=== PATIENT | female | born 1980 | race Caucasian/White ===

== ENCOUNTER 2016-12-04 21:04 | Emergency (ER) | payer BC ==
[2016-12-04] MEDS ORDERED: SODIUM CHLORIDE 0.9% 1,000 ML IV STA (21:18)
[2016-12-04] MEDS ORDERED: DICYCLOMINE 10 MG/ML 2 ML AMP IM STA (21:18)
[2016-12-04] MEDS ORDERED: HYDROmorphone 1 MG/ML 1 ML SYRINGE IVP STA (21:18)
[2016-12-04] MEDS ORDERED: ONDANSETRON 4 MG/2 ML VIAL IVP STA (21:18)
[2016-12-04] MEDS ORDERED: RX INFO: IV CONTRAST WAS GIVEN 1 EACH MISC MISCELLANE PRN (21:19)
[2016-12-04] MEDS ORDERED: IBUPROFEN IV 800 MG in SODIUM CHLORIDE 0.9% 250 ML IV ONE (21:25)
--- NOTE | 2016-12-04 21:25 | ED ---
Abdominal Pain HPI - General Chief Complaint: Abdominal Pain Stated Complaint: Vomiting Time Seen by Provider: 12/04/16 21:14 Source: patient, RN notes reviewed Mode of arrival: ambulatory Limitations: no limitations - History of Present Illness Initial Comments: 36-year-old female presents emergency Department chief complaint of abdominal pain nausea vomiting and diarrhea. Patient started having the symptoms yesterday. They've been progressively getting worse. Family has had symptoms like symptoms with their 2 children. Patient just seemed to be getting worse and worse she states her whole abdomen as cramping and she said the diarrhea and throwing up and she just was not any better home so they thought that she should be seen. Patient has had no other symptoms with this. There has been low-grade fevers.Patient denies any recent fever, chills, shortness of breath, chest pain, back pain, numbness or tingling, dysuria or hematuria, constipation , headaches or visual changes, or any other current symptoms. - Related Data Home Medications Medication Instructions Recorded Confirmed Multivitamins, Thera [Multivitamin 1 tab PO DAILY 12/04/16 12/04/16 (formulary)] Previous Rx's Medication Instructions Recorded Dicyclomine [Bentyl] 10 mg PO TID #20 capsule 12/04/16 Ondansetron Odt [Zofran ODT] 4 mg PO Q8HR PRN #20 tab 12/04/16 Allergies Allergy/AdvReac Type Severity Reaction Status Date / Time cephalexin [From Keflex] Allergy Rash/Hives Verified 12/04/16 21:23 norma Allergy Rash/Hives Verified 12/04/16 21:23 Review of Systems ROS Statement: Those systems with pertinent positive or pertinent negative responses have been documented in the HPI. ROS Other: All systems not noted in ROS Statement are negative. Past Medical History Past Medical History: No Reported History History of Any Multi-Drug Resistant Organisms: None Reported Past Surgical History: Cholecystectomy Additional Past Surgical History / Comment(s): i&d of abd abscess Past Psychological History: No Psychological Hx Reported Smoking Status: Never smoker Past Alcohol Use History: Occasional Past Drug Use History: None Reported General Exam - General Exam Comments Initial Comments: General: The patient is awake and alert, in no distress, and does not appear acutely ill. Eye: Pupils are equal, round and reactive to light, extra-ocular movements are intact; there is normal conjunctiva bilaterally. No signs of icterus. Ears, nose, mouth and throat: There are moist mucous membranes and no oral lesions. Neck: The neck is supple, there is no tenderness. Cardiovascular: There is a regular rate and rhythm. No murmur, rub or gallop is appreciated. Respiratory: Lungs are clear to auscultation, respirations are non-labored, breath sounds are equal. No wheezes, stridor, rales, or rhonchi. Gastrointestinal: Soft, non-distended, she is mildly tender abdomen without masses or organomegaly noted. There is no rebound or guarding present. No CVA tenderness. Bowel sounds are unremarkable. Back: There is no tenderness to palpation in the midline. There is no obvious deformity. No rashes noted. Musculoskeletal: Normal ROM, no tenderness, There is no pedal edema. There is no calf tenderness or swelling. Sensation intact. Pulses equal bilaterally 2+. Neurological: CN II-XII intact, There are no obvious motor or sensory deficits. Coordination appears grossly intact. Speech is normal. Skin: Skin is warm and dry and no rashes or lesions are noted. Psychiatric: Cooperative, appropriate mood & affect, normal judgment. Limitations: no limitations Course Vital Signs 12/04/16 21:10 Temperature 99.2 F Pulse Rate 122 H Respiratory 20 Rate Blood Pressure 110/76 O2 Sat by Pulse 99 Oximetry Medical Decision Making - Medical Decision Making 36 yo female presents emergency room chief complaint of abdominal pain nausea vomiting and diarrhea. This time CT and lab work is reviewed. At this time the patient appears to have most likely gastroenteritis. We did discuss however there could be other etiologies for the pain when to return and follow- up. We did discuss all the patient's questions. He stated he understood she states that she is feeling much better. This time patient will be discharged home. - Lab Data Result diagrams: 12/04/16 22:10 12/04/16 22:10 Lab Results 12/04/16 12/04/16 12/04/16 Range/Units 22:10 22:10 22:10 WBC 9.0 (3.8-10.6) k/uL RBC 5.20 (3.80-5.40) m/uL Hgb 16.4 H (11.4-16.0) gm/dL Hct 49.2 H (34.0-46.0) % MCV 94.6 (80.0-100.0) fL MCH 31.5 (25.0-35.0) pg MCHC 33.3 (31.0-37.0) g/dL RDW 13.4 (11.5-15.5) % Plt Count 238 (150-450) k/uL Neutrophils % 84 % Lymphocytes % 9 % Monocytes % 4 % Eosinophils % 1 % Basophils % 0 % Neutrophils # 7.5 (1.3-7.7) k/uL Lymphocytes # 0.8 L (1.0-4.8) k/uL Monocytes # 0.4 (0-1.0) k/uL Eosinophils # 0.1 (0-0.7) k/uL Basophils # 0.0 (0-0.2) k/uL Sodium 140 (137-145) mmol/L Potassium 4.2 (3.5-5.1) mmol/L Chloride 106 (98-107) mmol/L Carbon Dioxide 20 L (22-30) mmol/L Anion Gap 14 mmol/L BUN 16 (7-17) mg/dL Creatinine 0.90 (0.52-1.04) mg/dL Est GFR (MDRD) Af Amer >60 (>60 ml/min/1.73 sqM) Est GFR (MDRD) Non-Af >60 (>60 ml/min/1.73 sqM) Glucose 101 H (74-99) mg/dL Plasma Lactic Acid [place] 1.4 (0.7-2.0) mmol/L Calcium 9.4 (8.4-10.2) mg/dL Phosphorus 2.8 (2.5-4.5) mg/dL Magnesium 1.8 (1.6-2.3) mg/dL Total Bilirubin 1.4 H (0.2-1.3) mg/dL AST 38 H (14-36) U/L ALT 55 H (9-52) U/L Alkaline Phosphatase 72 (38-126) U/L Total Protein 7.9 (6.3-8.2) g/dL Albumin 4.7 (3.5-5.0) g/dL Amylase 66 (30-110) U/L Lipase 112 (23-300) U/L Urine Color Urine Appearance (Clear) Urine pH (5.0-8.0) Ur Specific [place] (1.001-1.035) Urine Protein (Negative) Urine Glucose (UA) (Negative) Urine Ketones (Negative) Urine Blood (Negative) Urine Nitrite (Negative) Urine Bilirubin (Negative) Urine Urobilinogen (<2.0) mg/dL Ur Leukocyte Esterase (Negative) Urine RBC (0-5) /hpf Urine WBC (0-5) /hpf Ur Squamous Epith Cells (0-4) /hpf Amorphous Sediment (None) /hpf Urine Bacteria (None) /hpf Urine Mucus (None) /hpf 12/04/16 Range/Units 22:10 WBC (3.8-10.6) k/uL RBC (3.80-5.40) m/uL Hgb (11.4-16.0) gm/dL Hct (34.0-46.0) % MCV (80.0-100.0) fL MCH (25.0-35.0) pg MCHC (31.0-37.0) g/dL RDW (11.5-15.5) % Plt Count (150-450) k/uL Neutrophils % % Lymphocytes % % Monocytes % % Eosinophils % % Basophils % % Neutrophils # (1.3-7.7) k/uL Lymphocytes # (1.0-4.8) k/uL Monocytes # (0-1.0) k/uL Eosinophils # (0-0.7) k/uL Basophils # (0-0.2) k/uL Sodium (137-145) mmol/L Potassium (3.5-5.1) mmol/L Chloride (98-107) mmol/L Carbon Dioxide (22-30) mmol/L Anion Gap mmol/L BUN (7-17) mg/dL Creatinine (0.52-1.04) mg/dL Est GFR (MDRD) Af Amer (>60 ml/min/1.73 sqM) Est GFR (MDRD) Non-Af (>60 ml/min/1.73 sqM) Glucose (74-99) mg/dL Plasma Lactic Acid [place] (0.7-2.0) mmol/L Calcium (8.4-10.2) mg/dL Phosphorus (2.5-4.5) mg/dL Magnesium (1.6-2.3) mg/dL Total Bilirubin (0.2-1.3) mg/dL AST (14-36) U/L ALT (9-52) U/L Alkaline Phosphatase (38-126) U/L Total Protein (6.3-8.2) g/dL Albumin (3.5-5.0) g/dL Amylase (30-110) U/L Lipase (23-300) U/L Urine Color Yellow Urine Appearance Cloudy H (Clear) Urine pH 5.5 (5.0-8.0) Ur Specific [place] 1.026 (1.001-1.035) Urine Protein 1+ H (Negative) Urine Glucose (UA) Negative (Negative) Urine Ketones Trace H (Negative) Urine Blood Trace H (Negative) Urine Nitrite Negative (Negative) Urine Bilirubin Negative (Negative) Urine Urobilinogen <2.0 (<2.0) mg/dL Ur Leukocyte Esterase Negative (Negative) Urine RBC 15 H (0-5) /hpf Urine WBC 4 (0-5) /hpf Ur Squamous Epith Cells 3 (0-4) /hpf Amorphous Sediment Rare H (None) /hpf Urine Bacteria Rare H (None) /hpf Urine Mucus Many H (None) /hpf Disposition Clinical Impression: Nausea & vomiting, Diarrhea, Elevated liver enzymes Disposition: HOME SELF-CARE Condition: Stable Instructions: Gastroenteritis (ED) Additional Instructions: Please use medication as discussed. Please follow up with family doctor if symptoms have not improved over the next two days. Please return to the emergency room if your symptoms increase or worsen or for any other concerns. Prescriptions: Dicyclomine [Bentyl] 10 mg PO TID #20 capsule Ondansetron Odt [Zofran ODT] 4 mg PO Q8HR PRN #20 tab PRN Reason: Nausea Referrals: Raúl Otoole MD [Primary Care Provider] - 1-2 days Time of Disposition: 23:53
[2016-12-04 22:36] LABS: Basophils % (A) 0 %; CH 31.7; CHCM 33.6; Eosinophils # (A) 0.1 k/uL (0-0.7); Eosinophils % (A) 1 %; HCT 49.2 % (34.0-46.0); HDW 2.42; HGB 16.4 gm/dL (11.4-16.0); Luc # (Auto) 0.09; Luc % (Auto) 1; Lymphocytes # (A) 0.8 k/uL (1.0-4.8); Lymphocytes % (A) 9 %; MCH 31.5 pg (25.0-35.0); MCHC 33.3 g/dL (31.0-37.0); MCV 94.6 fL (80.0-100.0); Mean Platelet Volume 8.2; Monocytes # (A) 0.4 k/uL (0-1.0); Monocytes % (A) 4 %; Neutrophils # (A) 7.5 k/uL (1.3-7.7); Neutrophils % (A) 84 %; RDW 13.4 % (11.5-15.5); WBC (Perox) 8.63
[2016-12-04 22:51] LABS: ALT 55 U/L (9-52); AST 38 U/L (14-36); Alkaline Phosphatase 72 U/L (38-126); Amylase 66 U/L (30-110); Anion Gap 14 mmol/L; Blood Urea Nitrogen 16 mg/dL (7-17); Calcium 9.4 mg/dL (8.4-10.2); Carbon Dioxide 20 mmol/L (22-30); Chloride 106 mmol/L (98-107); Glucose 101 mg/dL (74-99); Magnesium 1.8 mg/dL (1.6-2.3); Non-African American GFR(MDRD) >60 (>60 ml/min/1.73 sqM); Phosphorous 2.8 mg/dL (2.5-4.5); Potassium 4.2 mmol/L (3.5-5.1); Sodium 140 mmol/L (137-145); Total Bilirubin 1.4 mg/dL (0.2-1.3); Total Protein 7.9 g/dL (6.3-8.2)
--- NOTE | 2016-12-04 23:11 | CT ---
EXAM: CT Abdomen and Pelvis With Intravenous Contrast. CLINICAL HISTORY: Reason: Pain TECHNIQUE: Axial computed tomography images of the abdomen and pelvis with intravenous contrast. CTDI is 9.7 mGy and DLP is 722 mGy-cm. This CT exam was performed using one or more of the following dose reduction techniques: automated exposure control, adjustment of the mA and/or kV according to patient size, and/or use of iterative reconstruction technique. COMPARISON: No relevant prior studies available. FINDINGS: The lung bases are clear. Status post cholecystectomy. The liver, pancreas, spleen, and adrenal glands are within normal limits for noncontrast technique. There is a 1 cm lower pole left renal cyst. No hydronephrosis. There is no bowel obstruction or perforation. Liquid colonic contents suggesting diarrheal illness. A normal appendix is noted. 2 cm involuting left ovarian cyst. Small fatty umbilical hernia. No fracture. IMPRESSION: Liquid colonic contents suggesting diarrheal illness. 2 cm involuting left ovarian cyst.
[2016-12-04] MEDS ORDERED: ONDANSETRON 4 MG ODT STARTER PACK 2 TAB BTL PO STA (23:21)
[2016-12-04 23:46] LABS: Amorphous Sediment,Urine Rare /hpf; Appearance,Urine Cloudy (Clear); Bacteria,Urine Rare /hpf; Bilirubin,Urine Negative (Negative); Glucose,Urine (UA) Negative (Negative); Ketones,Urine Trace (Negative); Leukocyte Esterase,Urine Negative (Negative); Mucus,Urine Many /hpf; Nitrite,Urine Negative (Negative); PH, Urine 5.5 (5.0-8.0); Particle Count 20961; Protein,Urine 1+ (Negative); RBC,Urine 15 /hpf (0-5); Specific Gravity,Urine 1.026 (1.001-1.035); Squamous Epithelial Cell,Urine 3 /hpf (0-4); UA Billing (MACRO vs. MICRO) MICRO; Urobilinogen,Urine <2.0 mg/dL (<2.0); WBC,Urine 4 /hpf (0-5)
[2016-12-05 00:04] VITALS: BP 92/57; PULSE 93; RESP 16; TEMP 98.6
== END 2016-12-05 00:13 | disposition home or self-care (01) ==
LOC: EC 21:04
DX: R11.2 Nausea with vomiting, unspecified (principal); R19.7 Diarrhea, unspecified; R10.9 Unspecified abdominal pain; R74.8 Abnormal levels of other serum enzymes; R50.9 Fever, unspecified; Z79.899 Other long term (current) drug therapy; Z88.1 Allergy status to other antibiotic agents; Z91.018 Allergy to other foods; Z90.49 Acquired absence of other specified parts of digestive tract
CPT/HCPCS: 36415; 80053; 82150; 83605; 83690; 83735; 84100; 85025; 81001; 87040; 87086; 74177; 99284; 96365; 96375 ×2; 96361; 96372; J0500; J2405; J1170; Q9967; S0119; J1741

== ENCOUNTER 2019-08-23 05:42 | Emergency (ER) | payer BC ==
[2019-08-23 05:50] VITALS: TEMP 99.8
[2019-08-23] MEDS ORDERED: IBUPROFEN 600 MG TAB PO STA (06:08)
[2019-08-23] MEDS ORDERED: SODIUM CHLORIDE 0.9% 2,000 ML IV ONE (06:28)
[2019-08-23] MEDS ORDERED: ONDANSETRON 4 MG/2 ML VIAL IVP STA (06:28)
[2019-08-23] MEDS ORDERED: KETOROLAC 30 MG/ML 1 ML VIAL IVP STA (06:28)
[2019-08-23] MEDS ORDERED: IPRATROPIUM-ALBUTEROL 3 ML NEB INHALATION STA (06:28)
[2019-08-23] MEDS ORDERED: methylPREDNISolone SOD SUCCI 125 MG/2 ML VIAL IV STA (06:29)
--- NOTE | 2019-08-23 06:30 | ED ---
URI HPI - General Chief Complaint: Upper Respiratory Infection Stated Complaint: SOB, +FluB Time Seen by Provider: 08/23/19 06:07 Source: patient, RN notes reviewed, old records reviewed Mode of arrival: ambulatory Limitations: no limitations - History of Present Illness Initial Comments: Patient is a 39-year-old female presents emergency department today for evaluation for concern for fever body aches, worsening cough. Was diagnosed with influenza 3 days ago and started Tamiflu on Friday. Patient states she still continues to feel unwell. Complains some nausea and worsening cough. Complains of aches and pains in her bones. She Tylenol this morning. No Motrin. - Related Data Home Medications Medication Instructions Recorded Confirmed Acetaminophen Tab [Tylenol Tab] 500 mg PO Q5H PRN 08/23/19 08/23/19 Albuterol Sulfate [Ventolin HFA] 1 - 2 puff INHALATION RT-Q6H PRN 08/23/19 08/23/19 Dextromethorphan Polistirex 30 mg PO Q12H 08/23/19 08/23/19 [Delsym] Ibuprofen [Motrin Ib] 200 mg PO Q5H PRN 08/23/19 08/23/19 Oseltamivir [Tamiflu] 75 mg PO Q12HR 08/23/19 08/23/19 guaiFENesin [Mucinex] 1,200 mg PO Q12H 08/23/19 08/23/19 Previous Rx's Medication Instructions Recorded Ondansetron Odt [Zofran Odt] 4 mg PO Q8HR PRN #12 tab 08/23/19 methylPREDNISolone Dose Pack 4 mg PO DIRECTED #21 package 08/23/19 [Medrol Dose Pack] Allergies Allergy/AdvReac Type Severity Reaction Status Date / Time cephalexin [From Keflex] Allergy Rash/Hives Verified 08/23/19 07:58 norma Allergy Rash/Hives Verified 08/23/19 07:58 Review of Systems ROS Statement: Those systems with pertinent positive or pertinent negative responses have been documented in the HPI. ROS Other: All systems not noted in ROS Statement are negative. Past Medical History Past Medical History: No Reported History History of Any Multi-Drug Resistant Organisms: None Reported Past Surgical History: Cholecystectomy Additional Past Surgical History / Comment(s): i&d of abd abscess Past Psychological History: No Psychological Hx Reported Smoking Status: Never smoker Past Alcohol Use History: Occasional Past Drug Use History: None Reported General Exam - General Exam Comments Initial Comments: 39-year-old female. Alert and oriented 3. Patient appears in mild to moderate discomfort. Limitations: no limitations General appearance: alert, in no apparent distress Head exam: Present: atraumatic, normocephalic, normal inspection Eye exam: Present: normal appearance, PERRL, EOMI. Absent: scleral icterus, conjunctival injection, periorbital swelling ENT exam: Present: normal exam, mucous membranes moist. Absent: normal oropharynx (erythematous orpharynx) Neck exam: Present: normal inspection. Absent: tenderness, meningismus, lymphadenopathy Respiratory exam: Present: normal lung sounds bilaterally, other (minimal wheezing). Absent: respiratory distress, wheezes, rales, rhonchi, stridor Cardiovascular Exam: Present: regular rate, normal rhythm, normal heart sounds. Absent: systolic murmur, diastolic murmur, rubs, gallop, clicks GI/Abdominal exam: Present: soft, normal bowel sounds. Absent: distended, tenderness, guarding, rebound, rigid Extremities exam: Present: normal inspection, full ROM, normal capillary refill. Absent: tenderness, pedal edema, joint swelling, calf tenderness Back exam: Present: normal inspection Neurological exam: Present: alert, oriented X3, CN II-XII intact Psychiatric exam: Present: normal affect, normal mood Course Vital Signs 08/23/19 08/23/19 08/23/19 05:47 06:00 06:01 Temperature 99.8 F H Pulse Rate 114 H 93 Respiratory 22 40 H 30 H Rate Blood Pressure 107/67 121/78 O2 Sat by Pulse 96 96 Oximetry 08/23/19 08/23/19 08/23/19 06:30 07:00 07:03 Temperature Pulse Rate 92 72 80 Respiratory 18 20 Rate Blood Pressure 119/75 109/80 O2 Sat by Pulse 94 L 98 Oximetry 08/23/19 07:13 Temperature Pulse Rate 86 Respiratory Rate Blood Pressure O2 Sat by Pulse Oximetry Medical Decision Making - Medical Decision Making 39-year-old female presents today for cough congestion. Diagnosed with flu B3 days ago. Currently on Tamiflu. Patient appears dehydrated. Given 2 L bolus. She has some minimal wheezing was given Solu-Medrol. Chest x-ray was read to be normal. Patient was advised on the importance of alternating Motrin Tylenol 3 4 hours. She appears ill, but has no signs of respiratory distress. Discharge fluids and emergency department. Discussed discharge the Patient was symptomatically treatment for influenza including continuing her Tamiflu. We'll discharge with a prescription for short course of steroid and Zofran as well. I discussed the importance of alternating Motrin and Tylenol. - Radiology Data Radiology results: report reviewed Normal chest x-ray. Disposition Clinical Impression: Influenza, Nausea Disposition: HOME SELF-CARE Condition: Good Instructions (If sedation given, give patient instructions): Influenza (ED) Additional Instructions: Patient is alternate between Motrin and Tylenol every 4 hours. Encourage fluid intake. Take the steroids help with cough congestion as well and clam picker cough syrups and throat lozenges. Patient should return to emergency department if any alarming signs or symptoms occur. Prescriptions: methylPREDNISolone Dose Pack [Medrol Dose Pack] 4 mg PO DIRECTED #21 package Ondansetron Odt [Zofran Odt] 4 mg PO Q8HR PRN #12 tab PRN Reason: Nausea Is patient prescribed a controlled substance at d/c from ED?: No Referrals: Raúl Otoole MD [Primary Care Provider] - 1-2 days Time of Disposition: 08:02
--- NOTE | 2019-08-23 07:51 | XR ---
EXAM: XR Chest, 2 Views CLINICAL HISTORY: Reason: cough, flu TECHNIQUE: Frontal and lateral views of the chest. COMPARISON: 03/02/16 FINDINGS: Lungs: Unremarkable. No consolidation. Pleural space: Unremarkable. No pneumothorax. Heart: Unremarkable. No cardiomegaly. Mediastinum: Unremarkable. Bones/joints: Unremarkable. IMPRESSION: Normal chest x-rays.
[2019-08-23 08:10] VITALS: BP 115/72; PULSE 93; RESP 16
== END 2019-08-23 08:21 | disposition home or self-care (01) ==
LOC: EC 05:42
DX: J10.1 Influenza due to other identified influenza virus with other respiratory manifestations (principal); E86.0 Dehydration; Z88.1 Allergy status to other antibiotic agents; Z91.018 Allergy to other foods; Z90.49 Acquired absence of other specified parts of digestive tract
CPT/HCPCS: 94640; 71046; 99285; 96374; 96375 ×2; 96361 ×2; J2930; J2405; J1885

== ENCOUNTER → 2019-09-08 | Outpatient (CLI) | payer BC ==
--- NOTE | 2019-09-08 08:50 | US ---
EXAMINATION TYPE: US abdomen complete DATE OF EXAM: 09/08/2019 COMPARISON: CT 12/04/2016 CLINICAL HISTORY: R74.8 elevated liver enzymes. EXAM MEASUREMENTS: Liver Length: 14.8 cm Gallbladder Wall: Surgically absent CBD: 0.4 cm Spleen: 10.6 cm Right Kidney: 10.9 x 3.6 x 4.4 cm Left Kidney: 10.5 x 5.0 x 4.6 cm Pancreas: Obscured by bowel gas Liver: Prominent hypoechoic area right lobe measuring 2.0 x 1.5 x 2.2 cm Gallbladder: Surgically absent Evidence for sonographic Bright's sign: No CBD: wnl Spleen: wnl Right Kidney: No hydronephrosis or masses seen Left Kidney: No hydronephrosis. Unable to visualize cyst area lower pole that was seen on CT Upper IVC: wnl Abd Aorta: Mid and distal obscured by bowel gas. Proximal portion wnl IMPRESSION: 1. There is an ill-defined hypoechoic area within the right lobe liver uncertain etiology. This is no t typical for hemangioma. Additional workup with contrast CT abdomen is recommended.
== END | disposition home or self-care (01) ==
LOC: RADUSWWP 07:07
PROVIDERS: ATTEND Family Medicine
DX: R93.2 Abnormal findings on diagnostic imaging of liver and biliary tract (principal)
CPT/HCPCS: 76700

== ENCOUNTER → 2019-09-17 | Outpatient (CLI) | payer BC ==
--- NOTE | 2019-09-17 08:43 | CT ---
EXAMINATION TYPE: CT abdomen w con DATE OF EXAM: 09/17/2019 COMPARISON: 12/04/2016 HISTORY: 39-year-old female Elevated LFTs. TECHNIQUE: Contiguous axial scanning of the abdomen following administration of 100 ml Isovue 300 IV contrast. Delayed images through the kidneys and coronal/sagittal reconstructions performed. CT DLP: 552.8 mGycm Automated exposure control for dose reduction was used. FINDINGS: LUNG BASES: No significant abnormality is appreciated. LIVER/GB: Liver borderline in size at 17.0 cm. No focal lesion. Portal venous system is patent. No bi liary ductal dilatation. Gallbladder surgically absent. PANCREAS: No significant abnormality is seen. SPLEEN: No significant abnormality is seen. ADRENALS: No significant abnormality is seen. KIDNEYS: A 1 cm cortical hypodensity anterior mid left kidney, unchanged from 2017 compatible with a benign cortical cyst. LYMPH NODES: Scattered nonenlarged mesenteric lymph nodes measuring up to 5 mm. BOWEL: Dilated small bowel, free fluid, or free air. Moderate stool burden. No pericolonic inflammat ory change. Pelvis is not imaged. BONES: No osseous destructive process. IMPRESSION: 1. LIVER BORDERLINE IN SIZE AT 17.0 CM. NO FOCAL LESION SEEN. 2. STATUS POST CHOLECYSTECTOMY. NO BILIARY DUCTAL DILATATION. 3. MODERATE STOOL BURDEN.
== END | disposition home or self-care (01) ==
LOC: RADCTMAIN 07:29
PROVIDERS: ATTEND Nurse Practitioner Adult Health
DX: R16.0 Hepatomegaly, not elsewhere classified (principal); Z90.49 Acquired absence of other specified parts of digestive tract
CPT/HCPCS: 74160; Q9967

== ENCOUNTER 2022-01-17 12:57 | Emergency (ER) | payer BC ==
[2022-01-17 14:02] VITALS: RESP 18
--- NOTE | 2022-01-17 14:59 | XR ---
EXAMINATION TYPE: XR foot complete RT DATE OF EXAM: 01/17/2022 CLINICAL HISTORY: pain TECHNIQUE: Frontal, lateral and oblique images of the right foot are obtained. COMPARISON: None. FINDINGS: There is no acute fracture/dislocation evident. The joint spaces appear within normal coates its. The overlying soft tissue appears unremarkable. IMPRESSION: There is no acute fracture or dislocation. ICD 10 NO FRACTURE, INITIAL EVALUATION
--- NOTE | 2022-01-17 14:59 | XR ---
EXAMINATION TYPE: XR ankle complete RT DATE OF EXAM: 01/17/2022 COMPARISON: NONE HISTORY: Pain TECHNIQUE: Frontal, lateral and oblique images of the right ankle are obtained. COMPARISON: None. FINDINGS: There is no acute fracture/dislocation evident. The joint spaces appear within normal coates its. The overlying soft tissue appears unremarkable. IMPRESSION: There is no acute fracture or dislocation seen.
[2022-01-17] MEDS ORDERED: IBUPROFEN 800 MG TAB PO STA (15:17)
--- NOTE | 2022-01-17 15:23 | ED ---
General Adult HPI - General Chief complaint: Extremity Injury, Lower Stated complaint: Right Foot Injury Time Seen by Provider: 01/17/22 15:10 Source: patient, family, RN notes reviewed, old records reviewed Mode of arrival: ambulatory Limitations: no limitations - History of Present Illness Initial comments: 41-year-old female presents to the emergency room after dropping a wheelbarrow of rocks on her foot today around 1200. Patient states she is able to bear weight but has pain and bruising. She states more pain with flexion of the great toe. She denies any other injuries. No medical history. Surgical history of cholecystectomy. -: hour(s) Severity scale (1-10): 8 Quality: aching Consistency: constant Associated Symptoms: denies other symptoms Treatments Prior to Arrival: none - Related Data Home Medications Medication Instructions Recorded Confirmed Acetaminophen Tab [Tylenol Tab] 500 mg PO Q5H PRN 08/23/19 08/23/19 Albuterol Sulfate [Ventolin HFA] 1 - 2 puff INHALATION RT-Q6H PRN 08/23/19 08/23/19 Dextromethorphan Polistirex 30 mg PO Q12H 08/23/19 08/23/19 [Delsym] Ibuprofen [Motrin Ib] 200 mg PO Q5H PRN 08/23/19 08/23/19 Oseltamivir [Tamiflu] 75 mg PO Q12HR 08/23/19 08/23/19 guaiFENesin [Mucinex] 1,200 mg PO Q12H 08/23/19 08/23/19 Previous Rx's Medication Instructions Recorded Ondansetron Odt [Zofran Odt] 4 mg PO Q8HR PRN #12 tab 08/23/19 methylPREDNISolone Dose Pack 4 mg PO DIRECTED #21 package 08/23/19 [Medrol Dose Pack] Albuterol Inhaler [Ventolin Hfa 1 - 2 puff INHALATION Q4-6H PRN #1 08/28/19 Inhaler] inhaler Albuterol Nebulized [Ventolin 2.5 mg INHALATION Q4H PRN 10 Days 08/28/19 Nebulized] nebu Naproxen [Naprosyn] 500 mg PO BID PRN #20 tablet 08/28/19 Promethazine HCl/Codeine 5 ml PO Q6H PRN 3 Days #60 ml 08/28/19 [Promethazine-Codeine Syrup] Ibuprofen [Motrin] 800 mg PO Q8H PRN #30 tab 01/17/22 Allergies Allergy/AdvReac Type Severity Reaction Status Date / Time cephalexin [From Keflex] Allergy Rash/Hives Verified 01/17/22 14:02 norma Allergy Rash/Hives Verified 01/17/22 14:02 Review of Systems ROS Statement: Those systems with pertinent positive or pertinent negative responses have been documented in the HPI. ROS Other: All systems not noted in ROS Statement are negative. Past Medical History Past Medical History: No Reported History History of Any Multi-Drug Resistant Organisms: None Reported Past Surgical History: Cholecystectomy Additional Past Surgical History / Comment(s): i&d of abd abscess Past Psychological History: No Psychological Hx Reported Smoking Status: Never smoker Past Alcohol Use History: Occasional Past Drug Use History: None Reported General Exam Limitations: no limitations General appearance: alert, in no apparent distress Head exam: Present: atraumatic, normocephalic, normal inspection Eye exam: Present: normal appearance Respiratory exam: Absent: respiratory distress, accessory muscle use Cardiovascular Exam: Present: regular rate, normal rhythm, normal heart sounds Right Ankle exam: Present: full ROM. Absent: tenderness, swelling Foot/Toe exam: Present: tenderness, swelling, ecchymosis (Ecchymosis along the medial aspect of the great toe). Absent: calcaneal tenderness, tenderness at base of 5th metatarsal Neurovascular tendon exam: Present: no vascular compromise. Absent: abnormal cap refill, pallor, foot drop Neurological exam: Present: alert, oriented X3 Psychiatric exam: Present: normal affect, normal mood Skin exam: Present: warm, dry, abrasion (right medial ankle). Absent: cyanosis, diaphoretic Course Vital Signs 01/17/22 13:58 Temperature 97.8 F Pulse Rate 84 Respiratory 18 Rate Blood Pressure 112/78 O2 Sat by Pulse 100 Oximetry Medical Decision Making - Medical Decision Making 41-year-old female dropped rocks on her right foot today. She states is able to ambulate. Pain with flexion of the great toe. She is neurovascularly intact. She does have full movement of the foot. There is no calcaneal tenderness. X-ray of the ankle and right foot show no evidence of fracture. She was instructed to rest, ice and elevate for the next few days, take Motrin as needed for pain. Ortho shoe was provided for support. Abrasion to be dressed with bacitracin and a bandage for the next 2 days. Return to the emergency room with any new or concerning symptoms. If pain persists follow up with primary care doctor for reevaluation. Patient is agreeable to this plan of care. Disposition Clinical Impression: Foot contusion Disposition: HOME SELF-CARE Condition: Good Instructions (If sedation given, give patient instructions): Foot Contusion (ED) Additional Instructions: Rest, ice, elevate and take Motrin as needed for pain. Follow-up with your primary care doctor next week. Prescriptions: Ibuprofen [Motrin] 800 mg PO Q8H PRN #30 tab PRN Reason: Pain Is patient prescribed a controlled substance at d/c from ED?: No Referrals: Gregory Rocha MD [Primary Care Provider] - 1-2 days Time of Disposition: 15:20
[2022-01-17 15:30] VITALS: BP 104/55; PULSE 88; TEMP 98
== END 2022-01-17 15:30 | disposition home or self-care (01) ==
LOC: EC 12:57
DX: S90.31XA Contusion of right foot, initial encounter (principal); Z88.1 Allergy status to other antibiotic agents; Z91.018 Allergy to other foods; W01.119A Fall on same level from slipping, tripping and stumbling with subsequent striking against unspecified sharp object, initial encounter

== ENCOUNTER → 2022-11-20 | Outpatient (CLI) | payer BC ==
--- NOTE | 2022-11-21 08:24 | MM ---
Reason for Exam: Screening (asymptomatic). Baseline mammogram. Patient History: Menarche at age 13. First Full-Term at age 28. Patient has history of breast feeding. Last menstrual period: 10/19/2022 Risk Values: Rama 5 year model risk: 0.7%. NCI Lifetime model risk: 10.9%. Prior Study Comparison: Patient's first Mammogram. Tissue Density: The breast tissue is heterogeneously dense. This may lower the sensitivity of mammography. Findings: Analyzed By CAD. Some indistinct grouped calcifications in the right breast middle to posterior depth at 2 levels warrant further workup. Additional oval circumscribed 2 masses in the left breast upper outer quadrant. Overall Assessment: Incomplete: need additional imaging evaluation, BI-RAD 0 Management: Diagnostic Breast Ultrasound of the left breast. Special View Mammogram of the right breast. Return for targeted ultrasound left breast upper-outer quadrant. Return for additional spot magnification and true lateral view right breast Patient should continue monthly self-breast exams. A clinical breast exam by your physician is recommended on an annual basis. This exam should not preclude additional follow-up of suspicious palpable abnormalities. Note on Rama scores and lifetime risk: 1. A Rama score greater than 3% is considered moderate risk. If this is the case, consider specialist referral to assess eligibility for a risk reducing agent. 2. If overall lifetime risk for the development of breast cancer is 20% or higher, the patient may qualify for future screening with alternating mammogram and breast MRI. Electronically signed and approved by: Alton Arroyo M.D.
== END | disposition home or self-care (01) ==
LOC: RADMAMWWP 15:45
PROVIDERS: ATTEND Obstetrics & Gynecology Obstetrics
DX: Z12.31 Encounter for screening mammogram for malignant neoplasm of breast (principal)
CPT/HCPCS: 77063; 77067

== ENCOUNTER → 2022-12-13 | Outpatient (CLI) | payer BC ==
--- NOTE | 2022-12-13 07:54 | US ---
EXAMINATION TYPE: US thyroid st tissue head/neck DATE OF EXAM: 12/13/2022 COMPARISON: NONE CLINICAL INDICATION: Female, 42 years old with history of E05.90 THYROTOXCICITY; low TSH GLAND SIZE: Right Lobe: 5.4x2.3x2.2 cm Overall Parenchyma: homogenous Left Lobe: 5.2x1.4x1.5 cm Overall Parenchyma: homogeneous Isthmus Thickness: 0.21 cm NODULES RIGHT: # of nodules measured on right: 1 1. 3.0 X 2.2 x 2.3 cm, lower mid, solid or almost completely solid, hypoechoic nodule, which is wid er than tall, with smooth margins, without echogenic foci. TR4. LEFT: # of nodules measured on left: 2 1. 1.8 X 0.7 x 1.1 cm, upper lateral, solid or almost completely solid, hypoechoic nodule, which is wider than tall, with ill-defined margins, without echogenic foci. TR4 2. 0.4 X 0.3 x 0.4 cm, lower lateral, solid or almost completely solid, hypoechoic nodule, which i s taller than wide, with smooth margins, without echogenic foci. ISTHMUS: # of nodules measured in the isthmus: 0 Bilateral neck scanned, lymphadenopathy noted in left jugular chain, most prominent lymph node measur es: 0.96x0.29x0.64cm Homogeneous normal-sized thyroid with bilateral nodules as noted above. IMPRESSION: Sampling of the larger nodules bilaterally advised. 2017 ACR TI-RADS LEVEL: TR-RADS 4 - Moderately Suspicious: Follow if > 1 cm, FNA if > 1.5 cm *Highest TI-RADS level nodule reported
== END | disposition home or self-care (01) ==
LOC: RADUSWWP 06:52
PROVIDERS: ATTEND Family Medicine
DX: E04.2 Nontoxic multinodular goiter (principal); E05.90 Thyrotoxicosis, unspecified without thyrotoxic crisis or storm
CPT/HCPCS: 76536

== ENCOUNTER → 2023-02-26 | Outpatient (CLI) | payer BC ==
--- NOTE | 2023-02-28 08:09 | NM ---
EXAMINATION TYPE: NM thyroid image w uptake DATE OF EXAM: 02/27/2023 COMPARISON: NONE CLINICAL INDICATION: Female, 42 years old with history of E04.2 NONTOXIC MULTINODULAR GOITER; TECHNIQUE: Thyroid iodine uptake is calculated and images performed after the oral administration of 302 uCi 1-123 Capsule. FINDINGS: There is normal distribution of activity throughout the gland. The 4 hour iodine uptake is calculated at 8.7% (normal range 8-14%). The 24-hour iodine uptake is calculated at 11.6% (normal ra nge 15-35%). Scintigraphic evaluation demonstrates inhomogeneous uptake. Hypertrapping nodule is seen mid and lowe r pole right thyroid lobe. There is also hypertrophy nodule seen upper pole left thyroid lobe. No col d nodules are seen. IMPRESSION: 1. Diminished 24 hour uptake of a normal 4 hour uptake. Correlate with thyroid function testing. 2. Hypertrophy nodules without evidence for cold nodule at this time.
== END | disposition home or self-care (01) ==
LOC: RADNMMAIN 08:34
PROVIDERS: ATTEND Otolaryngology
DX: E04.2 Nontoxic multinodular goiter (principal)
CPT/HCPCS: 78014; A9516

== ENCOUNTER → 2023-05-13 | Outpatient (CLI) | payer BC ==
[2023-05-13 16:09] LABS: ALT 38 U/L (8-44); AST 20 U/L (13-35); Albumin 4.4 d/dL (3.8-4.9); Albumin/Globulin Ratio 1.57 Ratio (1.60-3.17); Alkaline Phosphatase 72 U/L (41-126); BUN/Creat Ratio 12.44 Ratio (12.00-20.00); Blood Urea Nitrogen 11.2 mg/dL (9.0-27.0); Calcium 9.5 mg/dL (8.7-10.3); Carbon Dioxide 24.9 mmol/L (21.6-31.8); Chloride 102 mmol/L (96-109); Globulin 2.8 d/dL (1.6-3.3); Glucose 82 mg/dL (70-110); Potassium 4.7 mmol/L (3.5-5.5); Sodium 137 mmol/L (135-145); T4, Free (Free Thyroxine) 0.85 ng/dL (0.80-1.80); Total Bilirubin 0.8 mg/dL (0.3-1.2); Total Protein 7.2 d/dL (6.2-8.2)
== END | disposition home or self-care (01) ==
LOC: LABWHC1 11:46
PROVIDERS: ATTEND Internal Medicine Endocrinology, Diabetes & Metabolism
DX: E05.90 Thyrotoxicosis, unspecified without thyrotoxic crisis or storm (principal)
CPT/HCPCS: 36415; 80053; 84439; 84443; 84480

== ENCOUNTER 2023-06-05 12:50 | Day surgery (SDC) | payer BC ==
[2023-06-05] MEDS ORDERED: ALPRAZolam 0.5 MG TAB PO PRN (13:12)
[2023-06-05 13:31] VITALS: RESP 18; TEMP 98.1
[2023-06-05 14:36] VITALS: BP 138/88; PULSE 87
--- NOTE | 2023-06-05 14:37 | US ---
ULTRASOUND GUIDED FNA THYROID BIOPSY: CLINICAL HISTORY: Request for FNA of the 3 cm right and 1.8 cm left thyroid nodule FINDINGS: The procedure was explained to the patient. The risks, complications, benefits and alternatives were discussed and any questions were answered. Informed consent was obtained. Patient was placed supin e on the ultrasound table and prepped and draped in the usual sterile fashion. Utilizing a 25 gauge needle, five passes were made into the requested right and left thyroid nodules. Patient was stable throughout the procedure. Pathology is pending. All elements of maximal barrier technique were utilized. IMPRESSION: 1. Successful ultrasound guided FNA thyroid biopsy.
== END 2023-06-05 14:15 | disposition home or self-care (01) ==
LOC: RADPROMAIN 12:50
PROVIDERS: ATTEND Internal Medicine Endocrinology, Diabetes & Metabolism
DX: E04.1 Nontoxic single thyroid nodule (principal)
CPT/HCPCS: 10005; 10006

== ENCOUNTER → 2023-08-29 | Outpatient (CLI) | payer BC ==
[2023-08-29 12:54] LABS: Partial Thromboplastin Time 24.6 sec (22.0-30.0); Prothrombin Time 10.5 sec (10.0-12.5)
[2023-08-29 13:08] LABS: African American GFR (CKD) 85 (>60 ml/min/1.73 sqM); Anion Gap 3 mmol/L; Blood Urea Nitrogen 12 mg/dL (7-17); Calcium 8.9 mg/dL (8.4-10.2); Carbon Dioxide 30 mmol/L (22-30); Chloride 107 mmol/L (98-107); Glucose 92 mg/dL (74-99); Non-African American GFR(CKD) 74 (>60 ml/min/1.73 sqM); Potassium 4.4 mmol/L (3.5-5.1); Sodium 140 mmol/L (137-145)
[2023-08-29 13:10] LABS: T4, Free (Free Thyroxine) 0.93 ng/dL (0.78-2.19)
[2023-08-29 17:01] LABS: HCT 42.9 % (37.2-46.3); HGB 13.9 g/dL (12.0-15.0); MCH 30.4 pg (27.0-32.0); MCHC 32.4 g/dL (32.0-37.0); MCV 93.9 FL (80.0-97.0); Mean Platelet Volume 10.9 FL (9.5-12.2); NRBC Per 100 WBC 0 X 10*3/uL (0.00-0.01); Platelet Count 242 X 10*3/uL (140-440); RBC 4.57 X 10*6/uL (4.10-5.20); RDW 12.8 % (11.5-14.5); WBC 3.08 X 10*3/uL (4.50-10.00)
== END | disposition home or self-care (01) ==
LOC: LABWHC1 12:02
PROVIDERS: ATTEND Otolaryngology
DX: E05.90 Thyrotoxicosis, unspecified without thyrotoxic crisis or storm (principal); E21.5 Disorder of parathyroid gland, unspecified; Z86.39 Personal history of other endocrine, nutritional and metabolic disease
CPT/HCPCS: 36415; 80048; 82306; 82330; 83970; 84439; 84481; 85027; 85610; 85730

== ENCOUNTER → 2023-11-27 | Outpatient (CLI) | payer BC ==
[2023-11-27 15:38] LABS: ALT 42 U/L (8-44); AST 25 U/L (13-35); Albumin 4.4 g/dL (3.8-4.9); Albumin/Globulin Ratio 1.57 Ratio (1.60-3.17); Alkaline Phosphatase 94 U/L (41-126); Blood Urea Nitrogen 13.8 mg/dL (9.0-27.0); Calcium 9.4 mg/dL (8.7-10.3); Carbon Dioxide 23.8 mmol/L (21.6-31.8); Chloride 103 mmol/L (96-109); Globulin 2.8 g/dL (1.6-3.3); Glucose 102 mg/dL (70-110); Potassium 4.4 mmol/L (3.5-5.5); Sodium 140 mmol/L (135-145); T4, Free (Free Thyroxine) 1.31 ng/dL (0.80-1.80); Total Bilirubin 0.5 mg/dL (0.3-1.2); Total Protein 7.2 g/dL (6.2-8.2)
== END | disposition home or self-care (01) ==
LOC: LABWHC1 08:50
PROVIDERS: ATTEND Internal Medicine Endocrinology, Diabetes & Metabolism
DX: E04.2 Nontoxic multinodular goiter (principal); E05.90 Thyrotoxicosis, unspecified without thyrotoxic crisis or storm
CPT/HCPCS: 36415; 80053; 84439; 84443; 84480

== ENCOUNTER → 2024-01-15 | Outpatient (CLI) | payer BC ==
[2024-01-15 14:37] LABS: HCT 44.8 % (37.2-46.3); HGB 14.4 g/dL (12.0-15.0); MCH 31.1 pg (27.0-32.0); MCHC 32.1 g/dL (32.0-37.0); MCV 96.8 FL (80.0-97.0); Mean Platelet Volume 11.4 FL (9.5-12.2); NRBC Per 100 WBC 0 X 10*3/uL (0.00-0.01); Platelet Count 325 X 10*3/uL (140-440); RBC 4.63 X 10*6/uL (4.10-5.20); RDW 12.4 % (11.5-14.5); WBC 7.28 X 10*3/uL (4.50-10.00)
[2024-01-15 14:38] LABS: Basophils % (A) 1.4 %; Eosinophils # (A) 0.35 X 10*3/uL (0.04-0.35); Eosinophils % (A) 4.8 %; Lymphocytes # (A) 2.75 X 10*3/uL (0.90-5.00); Lymphocytes % (A) 37.8 %; Monocytes # (A) 0.57 X 10*3/uL (0.20-1.00); Monocytes % (A) 7.8 %; Neutrophils # (A) 3.48 X 10*3/uL (1.80-7.70); Neutrophils % (A) 47.8 %
[2024-01-15 15:13] LABS: ALT 54 U/L (8-44); AST 25 U/L (13-35); Albumin 4.3 g/dL (3.8-4.9); Albumin/Globulin Ratio 1.65 Ratio (1.60-3.17); Alkaline Phosphatase 87 U/L (41-126); Calcium 9.3 mg/dL (8.7-10.3); Carbon Dioxide 24.6 mmol/L (21.6-31.8); Chloride 104 mmol/L (96-109); Chol/HDL Ratio 3.09 Ratio; Globulin 2.6 g/dL (1.6-3.3); Glucose 103 mg/dL (70-110); LDL Cholesterol,Calculated 83.4 mg/dL (0.0-131.0); Potassium 4.5 mmol/L (3.5-5.5); Sodium 140 mmol/L (135-145); Total Bilirubin 0.9 mg/dL (0.3-1.2); Total Protein 6.9 g/dL (6.2-8.2); VLDL Calculation 18.06 mg/dL (5.00-40.00)
== END | disposition home or self-care (01) ==
LOC: LABWHC1 08:49
PROVIDERS: ATTEND Family Medicine
DX: Z00.00 Encounter for general adult medical examination without abnormal findings (principal)
CPT/HCPCS: 36415; 80053; 80061; 83036; 84443; 85025

== ENCOUNTER → 2025-01-17 | Outpatient (CLI) | payer BC | END | disposition home or self-care (01) | LOC: LABWHC1 14:48 | PROVIDERS: ATTEND Internal Medicine Endocrinology, Diabetes & Metabolism | DX: E03.8 Other specified hypothyroidism (principal) | CPT/HCPCS: 36415; 84443 ==